=== PATIENT | male | born 1970 | race African-American/Black ===

== ENCOUNTER 2016-07-31 01:49 | Emergency (ER) | payer SELFPAY ==
[~2016-07-31] VITALS: Ht 188 cm; Wt 86.4 kg
[~2016-07-31 01:49] MED LIST: ALEVE 220MG220 MG PO; ASPIRIN 81M81 MG/TA2 PO; BACTRIM DS 8001 TAB PO; CEPHALEXIN500 M1 PO; CIPRO 500MG TA500 MG PO; COLACE 100100 MG/CAP PO; DITROPAN XL 5MG5 M1 PO; FIORICET 325 MG1 TA1 PO; FLAGYL500 MG PO; FLEXERIL 1010 MG/TAB PO; LOPRESSOR100 MG PO; LORTAB 5/500 501 TAB PO; MEDROL 4MG DOSPA4 MG PO; MOTRIN 800800 MG/TAB PO; NAPROSYN500 MG PO; NO HOME MEDICATIONS; NORCO 325 MG-51 TAB PO; NORCO 325 MG-7.1 TAB PO; OMNICEF 300MG300 MG PO; PERCOCET 325 MG1 TA2 PO; PHENERGAN 25 TA25 MG PO; PHENERGAN25 MG RC; PRADAXA 150MG150 MG PO; PRIL40 PO; PRINIVIL10 MG PO; PROMETHAZINE12.5 M5 PO; PROTONIX 40MG T40 MG PO; REGLAN 10MG10 MG/TAB PO; ULTRAM 50MG TAB50 MG PO; ZESTRIL 10MG10 MG PO; ZOFRAN 4MG T4 MG/TAB PO; ZOFRAN ODT4 MG PO; ZOFRAN8 MG PO
[2016-07-31 01:58] VITALS: TEMP 98.1
[2016-07-31 02:13] LABS: BASO % 0.5 % (0.0-2.0); EOS % 0.5 % (0-4.0); GRAN # 2.5 (1.4-6.5); GRAN % 43.2 % (42.2-75.2); HEMATOCRIT 44.8 % (42.0-52.0); LYMPH # 2.8 (1.2-3.4); LYMPH % 48.8 % (20.0-51.0); MEAN CELL VOLUME 83 fl (80.0-100.0); MEAN CORPUSCULAR HEMOGLOBIN 28 pg (27.0-31.0); MEAN CORPUSCULAR HGB CONC 34 g/dl (33.0-37.0); MEAN PLATELET VOLUME 8.5 fl (7.4-10.4); MONO # 0.4 (0.1-0.6); MONO % 6.8 % (1.7-9.3); PLATELET COUNT 205 K/mm3 (130-400); RED BLOOD COUNT 5.41 M/mm3 (4.20-5.60); REDCELL DISTRIBUTION WIDTH-CV 14.6 % (11.5-14.5); WHITE BLOOD COUNT 5.7 K/mm3 (4.8-10.8)
[2016-07-31 02:32] LABS: ADJUSTED CALCIUM 9.8 mg/dL (8.4-10.2); ALBUMIN 4.3 gm/dL (3.5-5.0); BILIRUBIN,TOTAL 0.8 mg/dL (0.0-1.0); CREATININE, serum 0.8 mg/dL (0.66-1.25); POTASSIUM 3.5 mmol/L (3.4-5.0); TOTAL PROTEIN 7.6 gm/dL (6.4-8.2)
[2016-07-31] MEDS ORDERED: PHENERGAN 25 TA25 MG PO (03:04)
[2016-07-31] MEDS ORDERED: ULTRAM 50MG TAB50 MG PO (03:04)
[2016-07-31 03:20] VITALS: BP 152/108; PULSE 52
== END 2016-07-31 03:20 | disposition home or self-care (01) ==
LOC: COL.ER 01:49
PROVIDERS: Emergency Medicine
DX: E86.9 Volume depletion, unspecified (principal); R10.84 Generalized abdominal pain; R11.10 Vomiting, unspecified; I10 Essential (primary) hypertension; F17.210 Nicotine dependence, cigarettes, uncomplicated; Z90.49 Acquired absence of other specified parts of digestive tract; Z98.0 Intestinal bypass and anastomosis status
CPT/HCPCS: J1170; J2550; J7030

== ENCOUNTER 2016-09-22 09:07 | Emergency (ER) | payer SELFPAY ==
[~2016-09-22] VITALS: Ht 188 cm; Wt 86.4 kg
[2016-09-22 09:10] VITALS: BP 159/87; TEMP 97.7
[2016-09-22 09:43] LABS: BASO % 0.1 % (0.0-2.0); GRAN # 9.3 (1.4-6.5); GRAN % 83.6 % (42.2-75.2); HEMOGLOBIN 16.9 g/dl (13.5-18.0); LYMPH # 1.2 (1.2-3.4); MEAN CELL VOLUME 82 fl (80.0-100.0); MEAN CORPUSCULAR HEMOGLOBIN 28 pg (27.0-31.0); MEAN CORPUSCULAR HGB CONC 35 g/dl (33.0-37.0); MEAN PLATELET VOLUME 9.1 fl (7.4-10.4); MONO # 0.6 (0.1-0.6); MONO % 4.9 % (1.7-9.3); PLATELET COUNT 228 K/mm3 (130-400); RED BLOOD COUNT 5.97 M/mm3 (4.20-5.60); REDCELL DISTRIBUTION WIDTH-CV 14.5 % (11.5-14.5); WHITE BLOOD COUNT 11.2 K/mm3 (4.8-10.8)
[2016-09-22 09:51] LABS: ADJUSTED CALCIUM 9.5 mg/dL (8.4-10.2); ALANINE AMINOTRANSFERASE 38 U/L (21-72); ALKALINE PHOSPHATASE 82 U/L (50-136); ANION GAP 18 mmol/L (7-16); BILIRUBIN,TOTAL 1.1 mg/dL (0.0-1.0); BLOOD UREA NITROGEN 18 mg/dL (9-20); C-REACTIVE PROTEIN < 0.5 mg/dL (0.0-0.9); CALCIUM 10.3 mg/dL (8.4-10.2); CARBON DIOXIDE 25 mmol/L (22-30); CHLORIDE 99 mmol/L (98-107); GLUCOSE 142 mg/dL (74-106); LIPASE 33 U/L (23-300); POTASSIUM 3.5 mmol/L (3.4-5.0); SODIUM 142 mmol/L (137-145); TOTAL PROTEIN 8.8 gm/dL (6.4-8.2)
[2016-09-22] MEDS ORDERED: ZOFRAN ODT4 MG PO (10:15)
[2016-09-22 10:59] VITALS: PULSE 72
[2016-09-23] MEDS ORDERED: PRILOSEC 20MG20 MG PO (09:56)
== END 2016-09-22 11:00 | disposition home or self-care (01) ==
LOC: COL.ER 09:07
PROVIDERS: Family Medicine
DX: E86.9 Volume depletion, unspecified (principal); R11.10 Vomiting, unspecified; K29.70 Gastritis, unspecified, without bleeding; Z98.0 Intestinal bypass and anastomosis status
CPT/HCPCS: J1200; J1885; J2405; J7030

== ENCOUNTER 2016-09-23 07:09 | Emergency (ER) | payer SELFPAY ==
[~2016-09-23] VITALS: Ht 188 cm; Wt 86.4 kg
[2016-09-23 08:26] LABS: BASO % 0.3 % (0.0-2.0); GRAN # 5.6 (1.4-6.5); HEMATOCRIT 50.1 % (42.0-52.0); HEMOGLOBIN 16.8 g/dl (13.5-18.0); LYMPH # 1.5 (1.2-3.4); LYMPH % 18.6 % (20.0-51.0); MEAN CELL VOLUME 84 fl (80.0-100.0); MEAN CORPUSCULAR HEMOGLOBIN 28 pg (27.0-31.0); MEAN CORPUSCULAR HGB CONC 34 g/dl (33.0-37.0); MEAN PLATELET VOLUME 8.8 fl (7.4-10.4); MONO # 0.7 (0.1-0.6); PLATELET COUNT 204 K/mm3 (130-400); REDCELL DISTRIBUTION WIDTH-CV 15.3 % (11.5-14.5); WHITE BLOOD COUNT 7.8 K/mm3 (4.8-10.8)
[2016-09-23 08:33] LABS: ADJUSTED CALCIUM 9.2 mg/dL (8.4-10.2); ALBUMIN 4.7 gm/dL (3.5-5.0); BILIRUBIN,TOTAL 1.3 mg/dL (0.0-1.0); CALCIUM 9.8 mg/dL (8.4-10.2); CREATININE, serum 1.03 mg/dL (0.66-1.25); POTASSIUM 3.3 mmol/L (3.4-5.0); TOTAL PROTEIN 8.2 gm/dL (6.4-8.2)
[2016-09-23] MEDS ORDERED: PRILOSEC 20MG20 MG PO (09:56)
[2016-09-23 10:04] VITALS: BP 129/80; PULSE 54; TEMP 97.8
== END 2016-09-23 10:33 | disposition home or self-care (01) ==
LOC: COL.ER 07:09
PROVIDERS: Family Medicine
DX: K29.70 Gastritis, unspecified, without bleeding (principal); R11.2 Nausea with vomiting, unspecified
CPT/HCPCS: C9113; J1170; J2550; J7030

== ENCOUNTER 2016-12-18 08:01 | Emergency (ER) | payer SELFPAY ==
[~2016-12-18] VITALS: Ht 188 cm; Wt 86.4 kg
[~2016-12-18 08:01] MED LIST changes: +PRILOSEC 20MG20 MG PO
[2016-12-18 08:05] VITALS: TEMP 98.5
[2016-12-18 08:56] LABS: BASO % 0.5 % (0.0-2.0); EOS % 0.5 % (0-4.0); GRAN # 1.8 (1.4-6.5); GRAN % 45.2 % (42.2-75.2); HEMATOCRIT 43.8 % (42.0-52.0); HEMOGLOBIN 14.5 g/dl (13.5-18.0); LYMPH # 1.7 (1.2-3.4); LYMPH % 44.1 % (20.0-51.0); MEAN CELL VOLUME 85 fl (80.0-100.0); MEAN CORPUSCULAR HEMOGLOBIN 28 pg (27.0-31.0); MEAN CORPUSCULAR HGB CONC 33 g/dl (33.0-37.0); MEAN PLATELET VOLUME 8.9 fl (7.4-10.4); MONO # 0.4 (0.1-0.6); MONO % 9.4 % (1.7-9.3); PLATELET COUNT 179 K/mm3 (130-400); RED BLOOD COUNT 5.16 M/mm3 (4.20-5.60); REDCELL DISTRIBUTION WIDTH-CV 14.7 % (11.5-14.5); WHITE BLOOD COUNT 3.9 K/mm3 (4.8-10.8)
[2016-12-18] MEDS ORDERED: PHENERGAN 25 TA25 MG PO (09:08)
[2016-12-18 09:16] LABS: ADJUSTED CALCIUM 8.8 mg/dL (8.4-10.2); ALBUMIN 4.2 gm/dL (3.5-5.0); BILIRUBIN,TOTAL 0.7 mg/dL (0.0-1.0); CREATININE, serum 0.76 mg/dL (0.66-1.25); POTASSIUM 3.5 mmol/L (3.4-5.0); TOTAL PROTEIN 7.2 gm/dL (6.4-8.2)
[2016-12-18 10:25] LABS: PH 6 (5-8); URINE APPEARANCE Clear; URINE BACTERIA None Seen /hpf; URINE BILIRUBIN Negative (NEGATIVE); URINE BLOOD 2+ (NEGATIVE); URINE COLOR Yellow; URINE GLUCOSE Negative (NEGATIVE); URINE KETONE Negative (NEGATIVE); URINE UROBILINOGEN Negative (NEGATIVE); URINE WBC 0-2 /hpf
[2016-12-18 10:26] LABS: SQUAMOUS EPITHELIAL None Seen /hpf
[2016-12-18 11:12] VITALS: BP 135/103; PULSE 74
== END 2016-12-18 11:13 | disposition home or self-care (01) ==
LOC: COL.ER 08:01
PROVIDERS: Emergency Medicine
DX: R10.13 Epigastric pain (principal); R11.10 Vomiting, unspecified; R19.7 Diarrhea, unspecified; Z85.028 Personal history of other malignant neoplasm of stomach
CPT/HCPCS: J1170; J1200; J2550; J7030

== ENCOUNTER 2017-01-29 07:42 | Emergency (ER) | payer SELFPAY ==
[~2017-01-29] VITALS: Ht 185.4 cm; Wt 86.4 kg
[2017-01-29 07:45] VITALS: TEMP 98
[2017-01-29 08:50] VITALS: BP 148/98; PULSE 63
== END 2017-01-29 08:50 | disposition home or self-care (01) ==
LOC: COL.ER 07:42
DX: G43.909 Migraine, unspecified, not intractable, without status migrainosus (principal); K59.00 Constipation, unspecified; Z87.891 Personal history of nicotine dependence
CPT/HCPCS: J1885; J2550

== ENCOUNTER 2017-07-05 16:00 | Emergency (ER) | payer SELFPAY ==
[~2017-07-05] VITALS: Ht 188 cm; Wt 86.4 kg
[2017-07-05 16:13] VITALS: TEMP 98.5
[2017-07-05 17:53] LABS: BASO % 0.6 % (0.0-2.0); EOS # 0.1 (0.0-0.7); GRAN # 2.4 (1.4-6.5); GRAN % 46.6 % (42.2-75.2); HEMATOCRIT 44.2 % (42.0-52.0); HEMOGLOBIN 14.6 g/dl (13.5-18.0); LYMPH # 2.3 (1.2-3.4); LYMPH % 44.6 % (20.0-51.0); MEAN CELL VOLUME 86 fl (80.0-100.0); MEAN CORPUSCULAR HEMOGLOBIN 28 pg (27.0-31.0); MEAN CORPUSCULAR HGB CONC 33 g/dl (33.0-37.0); MEAN PLATELET VOLUME 9.1 fl (7.4-10.4); MONO # 0.4 (0.1-0.6); MONO % 7.2 % (1.7-9.3); PLATELET COUNT 194 K/mm3 (130-400); RED BLOOD COUNT 5.16 M/mm3 (4.20-5.60); REDCELL DISTRIBUTION WIDTH-CV 14.5 % (11.5-14.5)
[2017-07-05 18:16] LABS: ERYTHROCYTE SEDIMENTATION RATE 4 mm/hr (0-15)
[2017-07-05] MEDS ORDERED: NORCO 325 MG-7.1 TAB PO (18:22)
[2017-07-05 18:28] VITALS: BP 161/107; PULSE 62
== END 2017-07-05 18:51 | disposition home or self-care (01) ==
LOC: COL.ER 16:00
PROVIDERS: Physician Assistant
DX: M25.511 Pain in right shoulder (principal); I10 Essential (primary) hypertension; G43.909 Migraine, unspecified, not intractable, without status migrainosus; Z85.038 Personal history of other malignant neoplasm of large intestine; Z88.8 Allergy status to other drugs, medicaments and biological substances; Z90.89 Acquired absence of other organs

== ENCOUNTER 2017-09-26 12:45 | Emergency (ER) | payer SELFPAY ==
[~2017-09-26] VITALS: Ht 188 cm; Wt 86.4 kg
[2017-09-26 12:48] VITALS: TEMP 98.8
[2017-09-26 13:17] LABS: COLLECTION METHOD CLEAN CATCH
[2017-09-26 13:25] LABS: MUCOUS Present /lpf; PH 7 (5-8); SQUAMOUS EPITHELIAL None Seen /hpf; URINE APPEARANCE Clear; URINE BACTERIA None Seen /hpf; URINE BILIRUBIN Negative (NEGATIVE); URINE BLOOD 2+ (NEGATIVE); URINE COLOR Yellow; URINE GLUCOSE Negative (NEGATIVE); URINE KETONE Negative (NEGATIVE); URINE LEUKOCYTE ESTERASE Negative (NEGATIVE); URINE NITRATE Negative (NEGATIVE); URINE PROTEIN(semi-quant) Negative (NEGATIVE); URINE UROBILINOGEN >=4.0 mg/dL (NEGATIVE)
[2017-09-26] MEDS ORDERED: NORCO 325 MG-51 TAB PO (14:40)
[2017-09-26 14:48] VITALS: BP 139/102; PULSE 67
== END 2017-09-26 14:49 | disposition home or self-care (01) ==
LOC: COL.ER 12:45
PROVIDERS: Physician Assistant
DX: R10.9 Unspecified abdominal pain (principal); F17.210 Nicotine dependence, cigarettes, uncomplicated; Z85.038 Personal history of other malignant neoplasm of large intestine; Z90.49 Acquired absence of other specified parts of digestive tract; Z98.890 Other specified postprocedural states

== ENCOUNTER 2018-03-04 07:21 | Emergency (ER) | payer SELFPAY ==
[~2018-03-04] VITALS: Ht 185.4 cm; Wt 86.1 kg
[2018-03-04 07:24] VITALS: TEMP 99
[2018-03-04 08:18] VITALS: BP 153/97; PULSE 72
== END 2018-03-04 08:41 | disposition home or self-care (01) ==
LOC: COL.ER 07:21
DX: G43.909 Migraine, unspecified, not intractable, without status migrainosus (principal); F17.210 Nicotine dependence, cigarettes, uncomplicated; Z98.890 Other specified postprocedural states; Z90.49 Acquired absence of other specified parts of digestive tract; Z91.041 Radiographic dye allergy status
CPT/HCPCS: J1885; J2550

== ENCOUNTER 2018-07-29 10:57 | Emergency (ER) | payer SELFPAY ==
[~2018-07-29] VITALS: Ht 188 cm; Wt 86.4 kg
[2018-07-29 11:09] VITALS: BP 136/94; TEMP 98.7
[2018-07-29 12:53] VITALS: PULSE 74
== END 2018-07-29 12:58 | disposition home or self-care (01) ==
LOC: COL.ER 10:57
DX: G43.909 Migraine, unspecified, not intractable, without status migrainosus (principal); F17.210 Nicotine dependence, cigarettes, uncomplicated; F12.90 Cannabis use, unspecified, uncomplicated; Z98.890 Other specified postprocedural states
CPT/HCPCS: J1885; J2550

== ENCOUNTER 2018-09-30 08:12 | Emergency (ER) | payer SELFPAY ==
[~2018-09-30] VITALS: Ht 188 cm; Wt 89.0 kg
[2018-09-30 08:28] VITALS: TEMP 97.3
[2018-09-30] MEDS ORDERED: POLYMYXIN B/TRIMETH OD (09:13)
[2018-09-30 10:12] VITALS: BP 155/96; PULSE 70
== END 2018-09-30 10:13 | disposition home or self-care (01) ==
LOC: COL.ER 08:12
DX: B99.9 Unspecified infectious disease (principal); H10.89 Other conjunctivitis
CPT/HCPCS: J1885; J2550

== ENCOUNTER 2018-12-03 12:04 | Emergency (ER) | payer SELFPAY ==
[~2018-12-03] VITALS: Ht 188 cm; Wt 86.4 kg
[~2018-12-03 12:04] MED LIST changes: +POLYMYXIN B/TRIMETH OD
[2018-12-03 12:27] VITALS: TEMP 97.6
[2018-12-03 15:00] LABS: BASO % 0.5 % (0.0-2.0); EOS % 0.5 % (0-4.0); GRAN # 2.1 (1.4-6.5); GRAN % 49.5 % (42.2-75.2); HEMOGLOBIN 15.5 g/dl (13.5-18.0); LYMPH # 1.7 (1.2-3.4); LYMPH % 39.8 % (20.0-51.0); MEAN CELL VOLUME 85 fl (80.0-100.0); MEAN CORPUSCULAR HEMOGLOBIN 28 pg (27.0-31.0); MEAN CORPUSCULAR HGB CONC 33 g/dl (33.0-37.0); MEAN PLATELET VOLUME 8.6 fl (7.4-10.4); MONO # 0.4 (0.1-0.6); MONO % 9.5 % (1.7-9.3); PLATELET COUNT 198 K/mm3 (130-400); RED BLOOD COUNT 5.51 M/mm3 (4.20-5.60); REDCELL DISTRIBUTION WIDTH-CV 14.4 % (11.5-14.5)
[2018-12-03 15:12] LABS: ALBUMIN 4.4 gm/dL (3.5-5.0); BILIRUBIN,TOTAL 0.9 mg/dL (0.0-1.0); CALCIUM 9.7 mg/dL (8.4-10.2); CREATININE, serum 0.8 (0.66-1.25); POTASSIUM 3.9 mmol/L (3.4-5.0); TOTAL PROTEIN 7.9 gm/dL (6.4-8.2)
[2018-12-03 15:16] LABS: COLLECTION METHOD CLEAN CATCH
[2018-12-03 15:33] LABS: MUCOUS Present /lpf; PH 5 (5-8); SQUAMOUS EPITHELIAL None Seen /hpf; URINE APPEARANCE Hazy; URINE BACTERIA None Seen /hpf; URINE BILIRUBIN Negative (NEGATIVE); URINE BLOOD 2+ (NEGATIVE); URINE COLOR Yellow; URINE GLUCOSE Negative (NEGATIVE); URINE KETONE 1+ (NEGATIVE); URINE LEUKOCYTE ESTERASE Negative (NEGATIVE); URINE NITRATE Negative (NEGATIVE); URINE PROTEIN(semi-quant) 1+ (NEGATIVE)
[2018-12-03 16:43] VITALS: BP 158/113; PULSE 70
== END 2018-12-03 16:36 | disposition home or self-care (01) ==
LOC: COL.ER 12:04
PROVIDERS: Emergency Medicine
DX: R10.31 Right lower quadrant pain (principal); M54.9 Dorsalgia, unspecified; F17.210 Nicotine dependence, cigarettes, uncomplicated; F12.90 Cannabis use, unspecified, uncomplicated; Z98.890 Other specified postprocedural states
CPT/HCPCS: J1885

== ENCOUNTER 2019-01-07 18:21 | Emergency (ER) | payer SELFPAY ==
[~2019-01-07] VITALS: Ht 188 cm; Wt 86.4 kg
[2019-01-07 18:25] VITALS: TEMP 98.1
[2019-01-07 19:47] VITALS: BP 158/104; PULSE 74
== END 2019-01-07 19:50 | disposition home or self-care (01) ==
LOC: COL.ER 18:21
DX: M67.472 Ganglion, left ankle and foot (principal); F17.210 Nicotine dependence, cigarettes, uncomplicated; Z98.890 Other specified postprocedural states

== ENCOUNTER 2019-06-16 10:22 | Emergency (ER) | payer SELFPAY ==
[~2019-06-16] VITALS: Ht 188 cm; Wt 89.5 kg
[2019-06-16 10:43] VITALS: BP 160/108; TEMP 98.2
[2019-06-16] MEDS ORDERED: MULTI VITAMINS1 TAB PO (11:02)
[2019-06-16 12:08] VITALS: PULSE 70
== END 2019-06-16 12:08 | disposition home or self-care (01) ==
LOC: COL.ER 10:22
DX: M25.572 Pain in left ankle and joints of left foot (principal); F17.210 Nicotine dependence, cigarettes, uncomplicated

== ENCOUNTER 2019-11-30 09:33 | Emergency (ER) | payer SELFPAY ==
[~2019-11-30] VITALS: Ht 188 cm; Wt 86.4 kg
[~2019-11-30 09:33] MED LIST changes: +MULTI VITAMINS1 TAB PO
[2019-11-30 09:57] VITALS: TEMP 98.1
[2019-11-30] MEDS ORDERED: CRUTCHES MC (10:52)
[2019-11-30 11:09] VITALS: BP 153/93; PULSE 82
== END 2019-11-30 11:10 | disposition home or self-care (01) ==
LOC: COL.ER 09:33
DX: M25.561 Pain in right knee (principal); F17.210 Nicotine dependence, cigarettes, uncomplicated; F17.290 Nicotine dependence, other tobacco product, uncomplicated

== ENCOUNTER 2020-01-30 11:44 | Emergency (ER) | payer SELFPAY ==
[~2020-01-30] VITALS: Ht 188 cm; Wt 86.4 kg
[~2020-01-30 11:44] MED LIST changes: +CRUTCHES MC
[2020-01-30 12:04] VITALS: TEMP 97.3
[2020-01-30] MEDS ORDERED: NORCO 325 MG-51 TAB PO (12:26)
[2020-01-30 12:53] VITALS: BP 142/84; PULSE 64
== END 2020-01-30 12:56 | disposition home or self-care (01) ==
LOC: COL.ER 11:44
DX: M77.11 Lateral epicondylitis, right elbow (principal); F17.210 Nicotine dependence, cigarettes, uncomplicated; Z91.041 Radiographic dye allergy status; X50.3XXA Overexertion from repetitive movements, initial encounter; Y92.59 Other trade areas as the place of occurrence of the external cause; Y99.0 Civilian activity done for income or pay

== ENCOUNTER 2020-02-29 15:19 | Emergency (ER) | payer SELFPAY ==
[~2020-02-29] VITALS: Ht 188 cm; Wt 87.3 kg
[2020-02-29 15:27] VITALS: TEMP 97.9
[2020-02-29 17:15] VITALS: BP 170/109; PULSE 78
== END 2020-02-29 17:15 | disposition home or self-care (01) ==
LOC: COL.ER 15:19
DX: M77.11 Lateral epicondylitis, right elbow (principal); I10 Essential (primary) hypertension
CPT/HCPCS: J3301

== ENCOUNTER 2020-05-30 08:59 | Emergency (ER) | payer SELFPAY ==
[~2020-05-30] VITALS: Ht 188 cm; Wt 86.4 kg
[~2020-05-30 08:59] MED LIST changes: +CENTRUM1 TA1; -MULTI VITAMINS1 TAB PO
[2020-05-30 09:05] VITALS: TEMP 97.9
[2020-05-30 10:04] LABS: BASO % 0.5 % (0.0-2.0); EOS % 0.5 % (0-4.0); GRAN # 2.6 (1.4-6.5); HEMATOCRIT 43.6 % (42.0-52.0); HEMOGLOBIN 14.4 g/dl (13.5-18.0); LYMPH # 1.4 (1.2-3.4); MEAN CELL VOLUME 85 fl (80.0-100.0); MEAN CORPUSCULAR HEMOGLOBIN 28 pg (27.0-31.0); MEAN CORPUSCULAR HGB CONC 33 g/dl (33.0-37.0); MEAN PLATELET VOLUME 8.5 fl (7.4-10.4); MONO # 0.4 (0.1-0.6); PLATELET COUNT 210 K/mm3 (130-400); RED BLOOD COUNT 5.15 M/mm3 (4.20-5.60); REDCELL DISTRIBUTION WIDTH-CV 14.5 % (11.5-14.5)
[2020-05-30] MEDS ORDERED: NORVASC 5MG5 MG/TAB PO (10:10)
[2020-05-30 10:15] LABS: ALBUMIN 4.2 gm/dL (3.5-5.0); BILIRUBIN,TOTAL 0.7 mg/dL (0.0-1.0); CALCIUM 9.2 mg/dL (8.4-10.2); CREATININE, serum 0.89 (0.66-1.25); POTASSIUM 3.2 mmol/L (3.4-5.0); TOTAL PROTEIN 7.2 gm/dL (6.4-8.2)
[2020-05-30 11:02] VITALS: BP 142/97; PULSE 91
== END 2020-05-30 10:53 | disposition home or self-care (01) ==
LOC: COL.ER 08:59
PROVIDERS: Family Medicine
DX: G43.909 Migraine, unspecified, not intractable, without status migrainosus (principal); Z91.041 Radiographic dye allergy status
CPT/HCPCS: J0780; J1100; J1885

== ENCOUNTER 2020-08-12 04:41 | Emergency (ER) | payer SELFPAY ==
[~2020-08-12] VITALS: Ht 188 cm; Wt 86.4 kg
[~2020-08-12 04:41] MED LIST changes: +NORVASC 5MG5 MG/TAB PO
[2020-08-12 04:44] VITALS: TEMP 98.5
[2020-08-12] MEDS ORDERED: ROBAXIN 50500 MG/TAB PO (05:29)
[2020-08-12] MEDS ORDERED: MOBIC 7.5MG7.5 MG PO (05:29)
[2020-08-12 05:44] VITALS: BP 149/91; PULSE 89
== END 2020-08-12 05:44 | disposition home or self-care (01) ==
LOC: COL.ER 04:41
DX: S16.1XXA Strain of muscle, fascia and tendon at neck level, initial encounter (principal); M54.12 Radiculopathy, cervical region; F17.210 Nicotine dependence, cigarettes, uncomplicated; X50.9XXA Other and unspecified overexertion or strenuous movements or postures, initial encounter

== ENCOUNTER 2021-02-15 09:49 | Emergency (ER) | payer SELFPAY ==
[~2021-02-15 09:49] MED LIST changes: +MOBIC 7.5MG7.5 MG PO; +ROBAXIN 50500 MG/TAB PO
[2021-02-15 10:00] VITALS: TEMP 98.2
[2021-02-15] MEDS ORDERED: ZOFRAN ODT4 MG PO (10:43)
[2021-02-15 11:05] VITALS: BP 146/106; PULSE 76
== END 2021-02-15 11:12 | disposition home or self-care (01) ==
LOC: COL.ER 09:49
DX: R19.7 Diarrhea, unspecified (principal); R51.9 Headache, unspecified; Z20.822 Contact with and (suspected) exposure to COVID-19
CPT/HCPCS: J1885

== ENCOUNTER 2021-04-10 10:44 | Emergency (ER) | payer SELFPAY ==
[~2021-04-10] VITALS: Ht 188 cm; Wt 86.4 kg
[2021-04-10 11:18] VITALS: TEMP 98.2
[2021-04-10 12:20] VITALS: BP 128/61; PULSE 88
== END 2021-04-10 12:25 | disposition home or self-care (01) ==
LOC: COL.ER 10:44
DX: J06.9 Acute upper respiratory infection, unspecified (principal); Z87.891 Personal history of nicotine dependence; Z20.822 Contact with and (suspected) exposure to COVID-19

== ENCOUNTER 2021-06-06 13:02 | Emergency (ER) | payer BC ==
[~2021-06-06] VITALS: Ht 188 cm; Wt 90.9 kg
[2021-06-06] MEDS ORDERED: XARELTO STARTER20 MG PO (14:50)
[2021-06-06 15:20] VITALS: BP 154/74; PULSE 78; TEMP 98.2
== END 2021-06-06 15:20 | disposition home or self-care (01) ==
LOC: COL.ER 13:02
DX: I82.461 Acute embolism and thrombosis of right calf muscular vein (principal); Z87.891 Personal history of nicotine dependence

== ENCOUNTER 2021-06-09 09:30 | Emergency (ER) | payer BC ==
[~2021-06-09] VITALS: Ht 188 cm; Wt 90.9 kg
[~2021-06-09 09:30] MED LIST changes: +XARELTO STARTER20 MG PO
[2021-06-09 09:40] VITALS: BP 150/97; PULSE 83; TEMP 98.1
== END 2021-06-09 10:02 | disposition home or self-care (01) ==
LOC: COL.ER 09:30
DX: I82.401 Acute embolism and thrombosis of unspecified deep veins of right lower extremity (principal); Z79.01 Long term (current) use of anticoagulants